=== PATIENT | female | born 1970 | race Caucasian/White ===

== ENCOUNTER 2024-11-28 16:35 | Emergency (ER) | payer OTHER, SELFPAY ==
[2024-11-28] VITALS (9 sets, daily range): BP systolic 160–173; BP diastolic 87–107; PULSE 65–90; RESP 15–27; TEMP 36.6; O2SAT 95–99
--- NOTE | ~2024-11-28 | CT_ITS ---
EXAMINATION: CT BRAIN W/O DATE: 11/28/2024 17:38 INDICATION: Trauma to the head. Syncope. TECHNIQUE: Computed tomography (CT) of the head was performed without intravenous contrast. The dose- length product was 605.33 mGy-cm. Automated exposure control and iterative reconstruction technique w ere employed. COMPARISON: No prior studies for comparison. FINDINGS: Normal brain parenchymal volume for age. Normal gonzalez-white differentiation. No acute intrac ranial hemorrhage, infarction, mass or mass effect. There are scattered mild periventricular and subc ortical white matter changes, most likely related to small vessel ischemic disease (microangiopathy). No ventriculomegaly or midline shift. Midline sagittal images demonstrate a normal corpus callosum, c raniovertebral junction and sella turcica. Basilar cisterns are patent. Paranasal sinuses and mastoids are pneumatized. No depressed skull fractures. IMPRESSION: 1. No acute intracranial abnormality. Reviewed, dictated and finalized at location A. L OWNER OPERATOR TRUCK DRIVER
--- NOTE | ~2024-11-28 | CT_ITS ---
EXAMINATION: CT cervical spine wo con DATE: 11/28/2024 17:38 INDICATION: Status post fall. Neck pain. TECHNIQUE: Computed tomography (CT) of the cervical spine was performed without intravenous contrast. The dose-length product was 498 mGy-cm. Automated exposure control and iterative reconstruction tech nique were employed. COMPARISON: None FINDINGS: There is mild disc narrowing at C5-6 and C6-7. Normal cervical alignment. Odontoid process is normal. No evidence for perched facet. Craniovertebral junction is normal. Spinous processes withi n normal limits. There is carotid atherosclerosis. There are emphysematous changes of the lung apices . No acute fracture or traumatic malalignment. No paraspinal soft tissue abnormality. IMPRESSION: 1. No acute abnormality of the cervical spine. Reviewed, dictated and finalized at location A. SION SALES MANAGER
--- NOTE | ~2024-11-28 | XR_ITS ---
EXAMINATION: XR chest 1V portable 11/28/2024 17:38 INDICATION: Hypertension PROCEDURE: AP portable chest COMPARISON: No prior studies for comparison. FINDINGS: The lungs are clear. The cardiomediastinal silhouette is within normal limits. There are no pleural effusions. There is no pneumothorax suspected. IMPRESSION: 1: NO ACUTE CARDIOPULMONARY DISEASE. Reviewed, dictated and finalized at location A. GE ANALYST
--- NOTE | 2024-11-28 16:39 | ED_ITS ---
HPI - Syncope General Chief Complaint: Syncope Stated Complaint: SYNCOPE WITH HTN Time Seen by Provider: 11/28/24 16:39 Source: patient Mode of arrival: ambulatory Limitations: no limitations History of Present Illness HPI narrative: 54-year-old female with a history of smoking, melanoma status post removal from right forearm, hypertension on atenolol and lisinopril presents to the ED with -- hypertension. her Systolic blood pressure has been fluctuating between high of 200 and a low 120. -- Yesterday patient had a syncopal spell while she is standing up. She fell down and became unconscious for around 5 minutes. No seizure activity. No urinary incontinence. Subsequently she regained consciousness without any focal neuro deficits. She attempted to get up once more following which she fell back again. subsequently she has laid flat and has not experienced any syncopal episodes. No chest pain or shortness of breath. No nausea/ vomiting abdominal pain. The patient has been eating and drinking normally. patient had 2 prior episodes of syncope. 1 of them happened after donating blood. -- She sustained a head injury with a hematoma over the right eye brow with Right periorbital erythema. subsequently the patient has not had any headache or vomiting. --she continues to complain of lightheadedness. MD complaint: loss of consciousness Onset (ago): day(s) ( 1 day ago) Duration of episode: 5 -: minutes(s) Prodromal symptoms: none Witnessed: Yes - by Bystander Context: standing up Injuries sustained associated with event: face Current symptoms: lightheaded History: previous syncopal episode Treatments prior to arrival: none Related Data Allergies Allergy/AdvReac Type Severity Reaction Status Date / Time No Known Allergies Allergy Verified 11/28/24 16:41 Review of Systems 2 Review of Systems: All systems reviewed & are unremarkable except as noted in HPI and below Constitutional: Constitutional: Reports as per HPI, Reports no additional constitutional complaints and Reports weakness ( Feels lightheaded) Eyes: Eyes: Reports as per HPI and Reports no additional eye complaints C omments: right periorbital ecchymosis. ENT: Reports system reviewed and no additional complaints, except as documented and Reports as per HPI Cardiovascular: Cardiovascular: Reports as per HPI and Reports no additional cardiovascular complaints Respiratory: Respiratory: Reports as per HPI and Reports no additional respiratory complaints Gastrointestinal: Gastrointestinal: Reports as per HPI and Reports no additional gastrointestinal complaints Genitourinary: Genitourinary: Reports no additional female genitourinary complaints and Reports as per HPI Musculoskeletal: Musculoskeletal: Reports no additional musculoskeletal complaints and Reports as per HPI Integumentary/Breasts: Skin/Breast: Reports system reviewed and no additional complaints, except as docu and Reports as per HPI Neurologic: Reports system reviewed and no additional complaints, except as documented and Reports as per HPI Comments: Feels lightheaded Psychiatric: Psychiatric: Reports no additional psychiatric complaints and Reports as per HPI Endocrine: Endocrine: Reports no additional endocrine complaints and Reports as per HPI Hematologic/Lymphatic: Hematologic/Lymphatic: Reports no additional hematologic/lymphatic complaints and Reports as per HPI Allergic/Immunologic: Allergic/Immunologic: Reports no additional allergic/immunologic complaints and Reports as per HPI [facility] Past Medical History Medical History (Updated 11/28/24 @ 18:40 by Ruben Ramirez MD) Melanoma Syncope Hypertension Social History Social History (Updated 11/28/24 @ 17:13 by Ruben Ramirez MD) Social History: smoker Exam 2 Narrative: orthostatic systolic blood pressure laying. on standing up systolic blood pressure fell to 173. No heart rate changes. Patient is afebrile. Const: General: no acute distress Nutritional Appearance: well nourished Orientation/consciousness: patient oriented x3 Limitations: no limitations HENMT: Head: normal to inspection Ears: external ears normal F brandon/Nose/Sinus: Normal external nose present Face and sinus: normal facial exam ( Right eyebrow hematoma with right periorbital ecchymosis) Mouth: Yes Normal oral and palatal mucosa present Throat: posterior oropharynx normal Eyes: Conjunctivae: conjunctivae normal Pupils: Equal, round and reactive pupils present EOM: EOMs intact bilaterally Direct Ophthalmoscopy: no photophobia Neck: Neck: normal visual inspection, no lymphadenopathy and no meningeal signs Other: no spinal tenderness noted. Use Chest: Chest palpation & inspection: normal inspection of the chest Resp: Effort & Inspection: normal respiratory effort Auscultation: d iminished lung sounds Cardio: Rate: regular rate Rhythm: regular rhythm GI: GI Palp: Yes Soft to palpation Auscultation: normal bowel sounds O ther: no tenderness/ rigidity /rebound. : General: Yes no CVA tenderness Back/Spine/Pelvis: Back: no CVA tenderness Skin: Other: Right periorbital ecchymosis Neuro: General: patient oriented x3, moves all extremities, no meningeal signs, no focal motor deficits and CN's II-XI intact bilaterally Cranial nerves: Yes Nystagmus not present Speech: normal speech Gait exam (Neuro): Normal gait present Extrem: General: normal to inspection and no clubbing, cyanosis or edema Psych: Mental Status: mental status grossly normal Affect: normal affect Attitude: cooperative Course Course Emergency Course: hypertension-- patient is noted to be hypertensive. She has not taken lisinopril and atenolol today. syncope- Patient is orthostatic. Given 1 L of IV fluids. CT of the head did not show any acute findings. The patient had an EKG and cardiac enzymes which were unremarkable. patient does not have any evidence of prior coronary artery disease. During ER stay the patient has not had any arrhythmias. Vital Signs Vital signs: Vital Signs Temperature 36.6 C 11/28/24 16:35 Pulse Rate 78 11/28/24 16:35 Respiratory Rate 18 11/28/24 16:35 Blood Pressure 173/107 H 11/28/24 16:35 Pulse Oximetry 99 11/28/24 16:35 Oxygen Delivery Room Air 11/28/24 16:35 Temperature 36.6 C 11/28/24 16:35 Pulse Rate 70 11/28/24 18:01 Respiratory Rate 15 11/28/24 18:01 Blood Pressure 171/98 H 11/28/24 18:01 Pulse Oximetry 97 11/28/24 18:01 Oxygen Delivery Room Air 11/28/24 16:35 MDM - Syncope MDM Narrative Medical decision making narrative: Syncope hypertension Differential Diagnosis Differential diagnosis: Likely syncope due to orthostatic hypotension and dehydration Lab Data Attestation: I reviewed the patient's lab results. 11/28/24 17:44 11/28/24 17:44 Labs: Lab Results 11/28/24 Range/Units 17:44 WBC 9.8 (4.8-10.8) K/mm3 RBC 4.49 (4.20-5.40) M/mm3 Hgb 13.3 (12.0-15.0) g/dL Hct 40.4 (35.0-49.0) % MCV 90.0 (78.0-102.0) fL MCH 29.6 (27.0-31.0) pg MCHC 32.9 (32-36) g/dL RDW 13.5 (11.6-14.4) % Plt Count 232 (150-420) K/mm3 MPV 9.8 (9.2-11.8) fl Immature Gran % (Auto) 0.2 H (0.0-0.0) % Neut % (Auto) 50.2 (50.0-70.0) % Lymph % (Auto) 41.0 (18.0-42.0) % [place] % (Auto) 7.3 (2.0-11.0) % Eos % (Auto) 0.9 L (1.0-6.0) % Baso % (Auto) 0.4 (0.0-1.0) % Lymph # (Auto) 4.03 (1.10-4.50) K/mm3 [place] # (Auto) 0.72 (0.10-0.90) K/mm3 Eos # (Auto) 0.09 (0.02-0.50) K/mm3 Baso # (Auto) 0.04 (0.00-0.10) K/mm3 Abs Immat Gran (auto) 0.02 H (0.00-0.00) K/mm3 Absolute Neuts (auto) 4.92 (1.70-7.20) K/mm3 Absolute Nucleated RBC 0.00 (0.00-0.00) K/mm3 Nucleated RBC % 0.0 (0-0.0) % PT 10.5 (9.50-12.1) Seconds INR 0.9 APTT 30.2 (23.9-30.70) Sec Sodium 141 (136-145) mmol/L Potassium 3.8 (3.5-5.1) mmol/L Chloride 105 (98-108) mmol/L Carbon Dioxide 25 (21-32) mmol/L Anion Gap 11 (4-12) mmol/L BUN 16 (7-18) mg/dL Creatinine 0.88 (0.55-1.02) mg/dL Estim Creat Clear Calc 69 ml/min Estimated GFR > 60 (59 - ) Glucose 91 (70-99) mg/dL Calculated Osmolality 293 (285-295) mOsm/kg Lactic Acid 0.6 (0.4-2.0) mmol/L Calcium 9.3 (8.5-10.1) mg/dL Magnesium 1.8 (1.8-2.4) mg/dL Total Bilirubin 0.4 (0.00-1.00) mg/dL AST 12 L (15-37) U/L ALT 22 (14-59) U/L Alkaline Phosphatase 124 H (46-116) U/L Troponin I 5.0 (0.00-60.4) ng/L NT-Pro-B Natriuret Pep 114 (0-125) pg/mL Total Protein 7.0 (6.4-8.2) g/dL Albumin 3.8 (3.4-5.0) g/dL Influenza A (RT-PCR) Negative (Negative) Influenza B (RT-PCR) Negative (Negative) RSV (RT-PCR) Negative (Negative) SARS-CoV-2 RNA (RT-PCR) Negative (Negative) ECG Data EKG #1: ECG completion date: 11/28/24 ECG completion time: 17:35 Interpretation: sinus rhythm. Normal axis. No ST -T-wave changes noted. Discharge Plan Discharge Clinical Impression: Hypertension, Syncope due to orthostatic hypotension Patient Disposition: Home, Self-Care Condition: Stable Instructions: Antibiotic Form, Syncope (DC) Additional Instructions: advised the patient to follow up with the primary care physician for evaluation of the carotids, echo, Holter/event monitor Patient Language: Greenlandic Follow-up/Referrals: Kurtz,Neida Arroyo APN [Primary Care Provider] -
--- NOTE | 2024-11-28 17:15 | ECG_ITS ---
Test Date: 2024-11-28 17:35:49 Measurements Intervals [place] Rate: 61 P: 70 [place]: 157 QRS: 52 QRSD: 93 T: 49 QT: 385 QTc: 389 Interpretive Statements SINUS RHYTHM No previous ECG available for comparison Electronically Signed On 11-29-2024 09:18:28 DRUG SAFETY COORDINATOR by Bhupendra Royal M.D.
[2024-11-28 17:48] LABS: Basophils Absolute Auto 0.04 K/mm3 (0.00-0.10); Basophils Percent Auto 0.4 % (0.0-1.0); Eosinophils Absolute Auto 0.09 K/mm3 (0.02-0.50); Eosinophils Percent Auto 0.9 % (1.0-6.0); Hematocrit 40.4 % (35.0-49.0); Hemoglobin 13.3 g/dL (12.0-15.0); Immature Granulocyte Absolute 0.02 K/mm3 (0.00-0.00); Immature Granulocyte Percent A 0.2 % (0.0-0.0); Lymphocytes Absolute Auto 4.03 K/mm3 (1.10-4.50); Mean Corpuscular HGB Conc 32.9 g/dL (32-36); Mean Corpuscular Hemoglobin 29.6 pg (27.0-31.0); Mean Platelet Volume 9.8 fl (9.2-11.8); Monocytes Absolute Auto 0.72 K/mm3 (0.10-0.90); Monocytes Percent Auto 7.3 % (2.0-11.0); Neutrophils Absolute Auto 4.92 K/mm3 (1.70-7.20); Neutrophils Percent Auto 50.2 % (50.0-70.0); Platelet Count Result 232 K/mm3 (150-420); Red Blood Count 4.49 M/mm3 (4.20-5.40); Red Cell Distribution Width 13.5 % (11.6-14.4); White Blood Count 9.8 K/mm3 (4.8-10.8)
[2024-11-28 18:02] LABS: INR 0.9; Partial Thromboplastin Time 30.2 Sec (23.9-30.70); Prothrombin Time 10.5 Seconds (9.50-12.1)
[2024-11-28 18:08] LABS: Lactic Acid Reflex 0.6 mmol/L (0.4-2.0)
[2024-11-28 18:12] LABS: Alanine Aminotransferase 22 U/L (14-59); Albumin Level 3.8 g/dL (3.4-5.0); Alkaline Phosphatase 124 U/L (46-116); Anion Gap 11 mmol/L (4-12); Aspartate Amino Transferase 12 U/L (15-37); Bilirubin,Total 0.4 mg/dL (0.00-1.00); Blood Urea Nitrogen 16 mg/dL (7-18); Calcium 9.3 mg/dL (8.5-10.1); Carbon Dioxide 25 mmol/L (21-32); Chloride 105 mmol/L (98-108); Estimated CRCL calculation 69 ml/min; Estimated Glomerular Filt Rate > 60; Glucose 91 mg/dL (70-99); Magnesium 1.8 mg/dL (1.8-2.4); NT Pro B Type Natriuretic Pept 114 pg/mL (0-125); Osmolality Calculated 293 mOsm/kg (285-295); Potassium 3.8 mmol/L (3.5-5.1); Sodium 141 mmol/L (136-145)
--- NOTE | 2024-11-28 18:12 | PC.NURSE ---
PT IS LYING ON STRETCHER TEXTING ON CELL PHONE WITHOUT DIFFICULTY. PT DENIES ANY NEEDS OR COMPLAINTS AT THIS TIME. SIG OTHER AT BEDSIDE. PT IS AWAITING RESULTS. NAD NOTED. WILL CONTINUE TO MONITOR.
[2024-11-28 18:29] LABS: SARS-CoV-2 RNA PCR Negative (Negative)
[2024-11-28 18:30] LABS: Influenza A QL RT-PCR Negative (Negative); Influenza B QL RT-PCR Negative (Negative); RSV RNA, RT-PCR Negative (Negative)
== END 2024-11-28 19:00 | disposition home or self-care (01) ==
PROVIDERS: Emergency Provider Internal Medicine Critical Care Medicine; PCP Nurse Practitioner Family
DX: I95.1 Orthostatic hypotension (principal); S00.11XA Contusion of right eyelid and periocular area, initial encounter; I10 Essential (primary) hypertension; F17.210 Nicotine dependence, cigarettes, uncomplicated; Z20.822 Contact with and (suspected) exposure to COVID-19; W19.XXXA Unspecified fall, initial encounter
CPT/HCPCS: 36415; 70450; 71045; 72125; 80053; 83605; 83735; 83880; 84484; 85025; 85610; 85730; 87637; 93005; 99284